=== PATIENT | male | born 1965 | race Caucasian/White ===

== ENCOUNTER → 2019-01-16 | Outpatient (CLI) | payer BC ==
--- NOTE | 2019-01-17 09:58 | PCVCIMAG ---
APPROVED REPORT Study performed: 01/16/2019 15:58:44 Exam: Stress Echocardiogram Indication: pacemaker Patient Location: Echo lab Stress Nurse: Kerline Dyer RN Status: routine Ht: 6 ft 0 in HR: 69 bpm BP: 110/80 mmHg Rhythm: NSR Medical History Medical History: Pacemaker Procedure The patient underwent an Exercise Stress Test using the Adrian Protocol. Blood pressure, heart rate, and EKG were monitored. An Echocardiogram was performed by all terrain vehicle technician in four stages in quad fashion. At peak stress, four selected images were obtained and placed side by side with resting images for comparison. Stress Test Details Stress Test: Exercise stress testing was performed using a Adrian protocol. HR Resting HR: 69 bpmMax Heart Rate (APMHR): 167 bpm Max HR Achieved: 166 bpmTarget HR (85% APMHR): 141 bpm % of APMHR: 99 Recovery HR: 85 bpm HR response to stress: Normal HR response to stress BP Resting BP: 110/80 mmHg Max BP: 184/80 mmHg Recovery BP: 140/80 mmHg BP response to stress: Normal blood pressure response to stress. ECG Resting ECG: Sinus Rhythm Stress ECG: Sinus Rhythm Recovery ECG: Clear Clinical Reason for Termination: Maximal effort Exercise duration: 14 min 36 sec Highest Stage Achieved: Stage 5: 5.0 mph at 18% grade. Exercise capacity: 17.50 METs Overall Exercise Capacity for Age: Excellent Stress ECG Conclusion 1. Subjectively negative for ischemia 2. Elective cartographic a negative for ischemia 3. Superior functional capacity Pre-Stress Echo The resting Echocardiogram showed normal left ventricular contractility with an estimated Ejection Fraction of about 55-60%. Normal wall motion in all segments on baseline images. Post-Stress Echo The stress Echocardiogram showed normal left ventricular contractility with an estimated Ejection Fraction of about 60-65%. Normal augmentation of wall motion in all segments on post stress images. Clinical No clinical or ECG evidence for ischemia. Conclusion Clinical Response: Non-ischemic Exercise Capacity: Superior Stress ECG Response: Non-ischemic Stress Echo Images: Non-ischemic The left ventricle is normal in size and wall thickness in both the rest and stress images. 1. Low risk study Other Information Study Quality: Good <Conclusion> The left ventricle is normal in size and wall thickness in both the rest and stress images. 1. Low risk study
== END | disposition home or self-care (01) ==
LOC: PCVCIMAG 15:41
PROVIDERS: ATTEND Internal Medicine
DX: R55 Syncope and collapse (principal)
CPT/HCPCS: 93325; 93351

== ENCOUNTER → 2019-05-07 | Outpatient (CLI) | payer BC ==
--- NOTE | 2019-05-08 16:40 | PCVCIMAG ---
APPROVED REPORT Study performed: 05/07/2019 08:10:14 EXAM: Comprehensive 2D, Doppler, and color-flow Echocardiogram Patient Location: Echo lab Room #: [id number]: routine BSA: 2.01 HR: 52 bpmBP: 106/64 mmHg Rhythm: NSR Other Information Study Quality: Good Indications Pacemaker Syncope Hx AV block 2D Dimensions IVSd: 7.97 (7-11mm)LVOT Diam: 23.91 (18-24mm) LVDd: 52.07 mm PWd: 8.27 (7-11mm) LVDs: 35.71 (25-40mm) Left Atrium: 34.01 (27-40mm) Aortic Root: 26.76 mm LV Single Plane 4CH: 60.06 % LV Single Plane 2CH: 61.21 % Biplane EF: 60.0 % Volumes Left Atrial Volume (Systole) Single Plane 4CH: 66.48 mLSingle Plane 2CH: 54.88 mL Biplane LA Volume: 63.00 mLLA ESV Index: 31.40 mL/m2 Aortic Valve AoV Peak Dario.: 1.26 m/s AO Peak Gr.: 6.36 mmHgLVOT Max P.55 mmHg LVOT Max V: 1.07 m/s RUSTY Vmax: 3.80 cm2 Mitral Valve E/A Ratio: 1.2 MV Decel. Time: 184.68 ms MV E Max Dario.: 0.65 m/s MV A Dario.: 0.53 m/s IVRT: 89.97 ms TDI E/Lateral E': 4.64E/Medial E': 7.22 Medial E' Dario.: 0.09 m/s Lateral E' Dario.: 0.14 m/s Pulmonary Valve PV Peak Dario.: 0.96 m/sPV Peak Gr.: 3.70 mmHg Pulmonary Vein P Vein S: 0.66 m/sP Vein A: 0.25 m/s P Vein D: 0.60 m/sP Vein A Dur.: 100.3 msec P Vein S/D Ratio: 1.10 Tricuspid Valve TR Peak Dario.: 2.41 m/s TR Peak Gr.: 23.14 mmHg TV Vmax: 0.62 m/sPA Pressure: 30.00 mmHg Left Ventricle The left ventricle is normal size. There is normal LV segmental wall motion. There is normal left ventricular wall thickness. Left ventricular systolic function is normal. The left ventricular ejection fraction is within the normal range. LVEF is 60%. The left ventricular diastolic function is normal. Right Ventricle The right ventricle is normal size. The right ventricular systolic function is normal. Pacemaker lead is present in the right ventricle. Atria The left atrium size is normal. Pacemaker lead is present in the right atrium. Aortic Valve Aortic valve is trileaflet. The aortic valve is normal in structure and function. Trace aortic regurgitation. There is no aortic valvular stenosis. Mitral Valve The mitral valve is normal in structure. Trace to mild mitral regurgitation. No evidence of mitral valve stenosis. Tricuspid Valve The tricuspid valve is normal in structure. Trace tricuspid regurgitation. No apparent pulmonary hypertension. Pulmonic Valve The pulmonary valve is normal in structure. There is no pulmonic valvular regurgitation. Great Vessels The aortic root is normal in size. The ascending aorta is normal in size. Aortic arch is normal in caliber. IVC is normal in size and collapses >50% with inspiration. Pericardium There is no pericardial effusion. There is no pleural effusion. <Conclusion> The left ventricle is normal size. LVEF is 60%. Pacemaker lead is present in the right ventricle. Aortic valve is trileaflet. The aortic valve is normal in structure and function. Trace aortic regurgitation. The mitral valve is normal in structure. Trace to mild mitral regurgitation. The tricuspid valve is normal in structure. Trace tricuspid regurgitation. No apparent pulmonary hypertension. The pulmonary valve is normal in structure. There is no pericardial effusion.
== END | disposition home or self-care (01) ==
LOC: PCVCIMAG 07:57
PROVIDERS: ATTEND Internal Medicine
DX: I34.0 Nonrheumatic mitral (valve) insufficiency (principal); R55 Syncope and collapse; Z95.0 Presence of cardiac pacemaker
CPT/HCPCS: 93306